=== PATIENT | female | born 1985 | race Caucasian/White ===

== ENCOUNTER 2019-01-29 21:37 | Emergency (ER) | payer SELFPAY ==
[~2019-01-29] VITALS: Ht 175.3 cm; Wt 117.2 kg
[~2019-01-29 21:37] MED LIST: FOLI-49 PO; IBUP-1561 PO; MECL25TA2 PO; PENI-36 PO
[2019-01-29 21:45] VITALS: Ht 175.3 cm; Wt 117.2 kg
[2019-01-29] MEDS ORDERED: LIDOCAINE 2%/EPI MPF (SDV) 20 ML VIAL INJ STA (23:12)
[2019-01-29] MEDS ORDERED: IBUPROFEN 800 MG TAB PO STA (23:12)
--- NOTE | 2019-01-30 01:15 | ERD ---
ER Documentation Chief Complaint Chief Complaint R KNEE PAIN/ LACERATION S/P GLF AT WORK HPI 33-year-old female presented to the emergency department complaining of right knee pain after injury which occurred just prior to arrival. The patient states she was moving a couch when she fell forward lacerating her right knee on a metal stair. She also fell onto her outstretched right hand and complains of right wrist pain. Pain is rated 8/10 in severity and worse with movement. She took no medication for relief of symptoms. She denies any head injury or loss of consciousness or other symptoms or injuries at this time. ROS All systems reviewed and are negative except as per history of present illness. Medications Home Meds Active Scripts Bacitracin* (Bacitracin Zinc Oint*) 28.35 Gm Oint, 1 APPLIC TOP BID, #1 TUB APPLI TO Prov:EMIR YAP PA-C 01/30/19 Cephalexin* (Keflex*) 500 Mg Capsule, 500 MG PO QID for 5 Days, CAP Prov:EMIR YAP PA-C 01/30/19 Ibuprofen* (Motrin*) 400 Mg Tab, 400 MG PO Q6, #30 TAB Prov:NATHALIE CARDENAS 09/18/15 Meclizine Hcl* (Antivert*) 25 Mg Tablet, 25 MG PO Q6H PRN for vertigo, #20 TAB Prov:LENNOX MEDINA 04/11/15 Reported Medications Penicillin V Potassium* (Penicillin V K*) 250 Mg Tab, 250 MG PO DAILY 03/21/11 Folic Acid* (Folic Acid*) 1 Mg Tablet, 1 MG PO DAILY 03/21/11 Allergies Allergies: Coded Allergies: No Known Allergies (Verified Allergy, Unknown, 07/26/14) PMhx/Soc History of Surgery: Yes (CHOLECYSTECTOMY, SPLENECTOMY) Anesthesia Reaction: No Hx Neurological Disorder: No Hx Respiratory Disorders: No Hx Cardiac Disorders: No Hx Psychiatric Problems: No Hx Miscellaneous Medical Probl: Yes (spiracytosis) Hx Alcohol Use: No Hx Substance Use: No Hx Tobacco Use: No Smoking Status: Never smoker FmHx Family History: No diabetes Physical Exam Vitals Vital Signs Date Temp Pulse Resp B/P (MAP) Pulse Ox O2 O2 Flow FiO2 Time Delivery Rate 01/30/19 98.0 80 19 136/78 99 Room Air 02:11 (97) 01/29/19 99.0 87 18 147/87 98 21:45 (107) Physical Exam Const: No acute distress Head: Atraumatic Eyes: Normal Conjunctiva ENT: Normal External Ears, Nose and Mouth. Neck: Full range of motion. No meningismus. Resp: Clear to auscultation bilaterally Cardio: Regular rate and rhythm, no murmurs Skin: No petechiae or rashes Back: No midline or flank tenderness Ext: Approximate 2 cm laceration noted to the right anterior knee with mild active bleeding and no obvious foreign body. Tenderness palpation surrounding the laceration of the right knee. Patient is neurovascularly intact distally., There is tenderness palpation of the thenar eminence of the right hand as well as tenderness palpation of the right wrist. Patient is neurovascularly intact to the right upper extremity and the right lower extremity. Neur: Awake and alert Psych: Normal Mood and Affect Results 24 hrs Current Medications Medications Dose Sig/Margaret Start Time Status Last (Trade) Ordered Route PRN Stop Time Admin Dose Reason Admin Lidocaine/ 20 ml ONCE STAT 01/29/19 DC Epinephrine INJ 23:12 (Xylocaine 01/29/19 23:14 2%/ Epi Mpf(Sdv)) Ibuprofen 800 mg ONCE STAT 01/29/19 DC 01/29/19 (Motrin) PO 23:12 23:18 01/29/19 23:14 Procedures/MDM 33-year-old female presented to the emergency department for right knee laceration and right hand pain after a fall which occurred just prior to arrival. X-rays were negative for any sign of fracture or foreign body. Patient was given full risks, benefits, alternatives to laceration repair of the right knee with sutures and she gave verbal consent. Laceration Repair by me: Anesthesia: 1% lidocaine locally Location: Right anterior knee Tendon/Joint/Nerves: No injury Foreign body: None detected after copious irrigation and exploration Technique: Simple Interrupted Sutures Complexity: No subcutaneous sutures/mucosal repair/edge excision Post Closure Length: 2 cm Patient's bleeding was easily controlled in the department and there is no indication of anemia. No evidence of compartment syndrome, neurologic injury, vascular injury, open joint, tendon laceration, or foreign body. Patient is appropriate for outpatient follow up. 48 hour wound check. Scar minimization instructions given. No evidence of life-threatening pathology at time of discharge. Pt/family in agreement with discharge plan/diagnosis. Pt/family advised to return immediately with any new or worsening symptoms. Follow-up with primary care physician within the next 1-2 days. Departure Diagnosis: Primary Impression: Laceration of right knee Additional Impression: Contusion of right hand Condition: EMIR Russ PA-C January 30, 2019 01:14
[2019-01-30] MEDS ORDERED: BACI28.34 TOP (01:54)
[2019-01-30] MEDS ORDERED: CEPH-443 PO (01:54)
[2019-01-30 02:11] VITALS: BP 136/78; PULSE 80; RESP 19
== END 2019-01-30 02:12 | disposition home or self-care (01) ==
LOC: FTE 21:37
DX: S81.011A Laceration without foreign body, right knee, initial encounter (principal); S60.221A Contusion of right hand, initial encounter; W18.39XA Other fall on same level, initial encounter; Y92.89 Other specified places as the place of occurrence of the external cause
CPT/HCPCS: 73562

== ENCOUNTER 2019-02-08 18:27 | Emergency (ER) | payer SELFPAY ==
[~2019-02-08] VITALS: Ht 175.3 cm; Wt 115.8 kg
[~2019-02-08 18:27] MED LIST changes: +BACI28.34 TOP; +CEPH-443 PO
[2019-02-08 18:38] VITALS: BP 135/76; PULSE 88; RESP 18; Ht 175.3 cm; Wt 115.8 kg
--- NOTE | 2019-02-08 19:16 | ERD ---
ER Documentation Chief Complaint Chief Complaint SUTURE REMOVAL HPI 33-year-old female presents for suture removal of the right knee. She sustained a laceration 10 days ago. She has no complaints of fevers, redness, restricted range of motion, additional complaints. ROS All systems reviewed and are negative except as per history of present illness. Medications Home Meds Active Scripts Bacitracin* (Bacitracin Zinc Oint*) 28.35 Gm Oint, 1 APPLIC TOP BID, #1 TUB APPLI TO Prov:EMIR YAP PA-C 01/30/19 Cephalexin* (Keflex*) 500 Mg Capsule, 500 MG PO QID for 5 Days, CAP Prov:EMIR YAP PA-C 01/30/19 Ibuprofen* (Motrin*) 400 Mg Tab, 400 MG PO Q6, #30 TAB Prov:NATHALIE CARDENAS 09/18/15 Meclizine Hcl* (Antivert*) 25 Mg Tablet, 25 MG PO Q6H PRN for vertigo, #20 TAB Prov:LENNOX MEDINA 04/11/15 Reported Medications Penicillin V Potassium* (Penicillin V K*) 250 Mg Tab, 250 MG PO DAILY 03/21/11 Folic Acid* (Folic Acid*) 1 Mg Tablet, 1 MG PO DAILY 03/21/11 Allergies Allergies: Coded Allergies: No Known Allergies (Verified Allergy, Unknown, 07/26/14) PMhx/Soc History of Surgery: Yes (CHOLECYSTECTOMY, SPLENECTOMY) Anesthesia Reaction: No Hx Neurological Disorder: No Hx Respiratory Disorders: No Hx Cardiac Disorders: No Hx Psychiatric Problems: No Hx Miscellaneous Medical Probl: Yes (spiracytosis) Hx Alcohol Use: No Hx Substance Use: No Hx Tobacco Use: No Smoking Status: Never smoker FmHx Family History: No diabetes, No coronary disease, No other Physical Exam Vitals Vital Signs Date Temp Pulse Resp B/P (MAP) Pulse Ox O2 O2 Flow FiO2 Time Delivery Rate 02/08/19 99.2 88 18 135/76 99 18:38 (95) Physical Exam Const: No acute distress Head: Atraumatic Eyes: Normal Conjunctiva ENT: Normal External Ears, Nose and Mouth. Neck: Full range of motion. No meningismus. Resp: Clear to auscultation bilaterally Cardio: Regular rate and rhythm, no murmurs Abd: Soft, non tender, non distended. Normal bowel sounds Skin: No petechiae or rashes Back: No midline or flank tenderness Ext: No cyanosis, or edema. Healing laceration on the right anterior knee. No erythema, bleeding or discharge. Neur: Awake and alert Psych: Normal Mood and Affect Procedures/MDM Patient presents with what appears to be a satisfactorily healing laceration on the right anterior knee. She has no signs of infection, ischemia or deficits. Sutures were removed without complications. She will be discharged home with return precautions for fevers, redness, new worsening symptoms. Departure Diagnosis: Primary Impression: Encounter for removal of sutures Condition: Stable Patient Instructions: Suture Removal, No Complication VALERI HUFF MD Feb 08, 2019 19:16
== END 2019-02-08 21:08 | disposition home or self-care (01) ==
LOC: FTE 18:27
DX: Z48.02 Encounter for removal of sutures (principal)
CPT/HCPCS: 99281